=== PATIENT | female | born 1990 | race African-American/Black ===

== ENCOUNTER 2017-05-23 05:09 | Inpatient (IN) ==
[2017-05-23] MEDS ORDERED: MEPERIDINE 50 MG/1 ML VIAL IV PRN (05:24)
[2017-05-23] MEDS ORDERED: BUTORPHANOL 2 MG/ML VIAL IV PRN (05:24)
[2017-05-23] MEDS ORDERED: ONDANSETRON 4 MG/2 ML VIAL IV PRN (05:24)
[2017-05-23] MEDS: LACTATED RINGERS 1,000 ML IV SCH ×3 (05:40→08:00)
[2017-05-23 05:53] LABS: Basophils % 0.2 % (0.0-0.8); Eosinophils # 0.1 10*3/uL (0.0-0.87); Eosinophils % 0.6 % (0.00-10.9); Hematocrit 31.6 VOL% (35.7-47.0); Hemoglobin 10.5 GM/DL (12.0-16.0); Immature Granulocytes % 0.6 %; Immature Granulocytes Absolute 0.05 #; Lymphocytes # 2.8 10*3/uL (1.4-4.0); Lymphocytes % 34.2 % (21.3-54.2); Mean Corpuscular HGB Conc 33.2 GM/DL (32-36); Mean Corpuscular Hemoglobin 30 PG (27-34); Mean Platelet Volume 11.8 FL (9.6-12.0); Monocytes # 0.6 10*3/uL (0.11-0.8); Monocytes % 6.9 % (1.7-12.7); Neutrophils # 4.7 10*3/uL (1.4-7.4); Neutrophils % 57.5 % (38.7-73.9); Platelet Count 127 T/CUMM (130-400); Red Blood Count 3.55 MC/CUMM (3.8-5.5); Red Cell Distribution Width 13.3 % (9.3-17.3); White Blood Count 8.1 T/CUMM (4-12)
[2017-05-23] MEDS ORDERED: FAMOTIDINE 20 MG/2 ML VIAL IV ONE (05:56)
[2017-05-23] MEDS ORDERED: CITRIC ACID/SODIUM CITRATE 30 ML UDCUP PO ONE (05:56)
[2017-05-23] MEDS ORDERED: fentaNYL 2 MCG/ROPIV 0.2% EPID 150 ML EPIDURAL SCH (06:00)
[2017-05-23 06:29] LABS: Alanine Aminotransferase 27 U/L (13-56); Albumin 2.5 G/DL (3.4-5.0); Alkaline Phosphatase 159 U/L (45-117); Aspartate Amino Transferase 27 U/L (0-37); Bilirubin,Total < 0.39 MG/DL (0.2-1.0); Blood Urea Nitrogen 5 MG/DL (7-18); Calcium 8.6 MG/DL (8.5-10.1); Glucose 91 MG/DL (74-106); Osmolality,Calculated 273.5 MOS/KG (273-304); Potassium 3.8 MMOL/L (3.5-5.1); Sodium 139 MMOL/L (136-145); Total Protein 6.3 G/DL (6.4-8.3)
[2017-05-23] MEDS ORDERED: OXYTOCIN/LR 20 UNIT/1,000 ML BAG IV ONE ×2 (07:20→11:54)
[2017-05-23] MEDS: ePHEDrine 50 MG/ML AMP IV PRN ×2 (07:29→07:55)
[2017-05-23 09:06] LABS: Apearance,Urine CLEAR (Clear); Bilirubin,Urine Negative (Negative); Blood, Urine Negative (Negative); Glucose,Urine (UA) Negative (Negative); Ketones,Urine Negative (Negative); Mucus,Urine Occasional /LPF (Occasional); Nitrite,Urine Negative (Negative); Protein,Urine Negative; RBC,Urine <1 /HPF (0-4); Urine Color Straw (Yellow); Urine Specific Gravity 1.008 (1.001-1.035); Urine Urobilinogen < 2.0 EU/DL (0.2-1.0); WBC,Urine <1 /HPF (0-6)
[2017-05-23] MEDS ORDERED: miSOPROStol 200 MCG TABLET ONE (09:26)
[2017-05-23] MEDS ORDERED: BENZOCAINE 20%/MENTHOL 0.5% SPRAY 56 GM CAN TOP PRN (14:50)
[2017-05-23] MEDS ORDERED: oxyCODONE/ACETAMINOPHEN 5-325 MG TABLET PO PRN ×2 (14:50)
[2017-05-23] MEDS ORDERED: BISACODYL 10 MG SUPP RECTAL PRN (14:50)
[2017-05-23] MEDS ORDERED: DIPH/TET/ACEL PERT BOOSTER VACCINE 0.5 ML VIAL IM ONE (14:50)
[2017-05-23] MEDS ORDERED: WITCH HAZEL PADS 100/JAR TOP PRN (14:50)
[2017-05-23] MEDS ORDERED: HYDROCORTISONE 2.5% RECTAL CREAM 30 GM TUBE TOP PRN (14:50)
[2017-05-23] MEDS ORDERED: RHO(D) IMMUNE GLOBULIN 300 MCG SYRINGE IM ONE (14:50)
[2017-05-23] MEDS ORDERED: ACETAMINOPHEN/CODEINE 300-30 MG TABLET PO PRN (14:50)
[2017-05-23] MEDS ORDERED: LANOLIN 50% CREAM 0.3 OZ TUBE TOP PRN (14:50)
[2017-05-23] MEDS ORDERED: ACETAMINOPHEN 325 MG TABLET PO PRN (14:50)
[2017-05-23] MEDS ORDERED: MEASLES/MUMPS/RUBELLA VACCINE 0.5 ML VIAL SUBCUT ONE (14:50)
[2017-05-23] MEDS: IBUPROFEN 800 MG TABLET PO PRN (15:11)
[2017-05-23] MEDS: DOCUSATE SODIUM 100 MG CAPSULE PO SCH (21:41)
[2017-05-24] MEDS: IBUPROFEN 800 MG TABLET PO PRN (03:45)
[2017-05-24] MEDS: DOCUSATE SODIUM 100 MG CAPSULE PO SCH ×2 (08:27→21:44)
[2017-05-24 08:38] LABS: Hematocrit 29.9 VOL% (35.7-47.0); Hemoglobin 9.8 GM/DL (12.0-16.0); Mean Corpuscular HGB Conc 32.8 GM/DL (32-36); Mean Corpuscular Hemoglobin 30 PG (27-34); Mean Corpuscular Volume 90.3 FL (87-102); Red Blood Count 3.31 MC/CUMM (3.8-5.5); Red Cell Distribution Width 13.6 % (9.3-17.3); White Blood Count 8.2 T/CUMM (4-12)
[2017-05-24 08:39] LABS: Basophils % 0.2 % (0.0-0.8); Eosinophils # 0.1 10*3/uL (0.0-0.87); Immature Granulocytes % 0.5 %; Immature Granulocytes Absolute 0.04 #; Lymphocytes # 2.9 10*3/uL (1.4-4.0); Lymphocytes % 34.9 % (21.3-54.2); Mean Platelet Volume 11.9 FL (9.6-12.0); Monocytes # 0.6 10*3/uL (0.11-0.8); Monocytes % 7.2 % (1.7-12.7); Neutrophils # 4.6 10*3/uL (1.4-7.4); Neutrophils % 56.2 % (38.7-73.9); Platelet Count 113 T/CUMM (130-400)
[2017-05-24] MEDS: FERROUS SULFATE 325 MG TABLET PO SCH (10:01)
[2017-05-25 07:12] VITALS: BP 100/57
[2017-05-25] MEDS: IBUPROFEN 800 MG TABLET PO PRN (07:12)
[2017-05-25] MEDS: DOCUSATE SODIUM 100 MG CAPSULE PO SCH (08:37)
[2017-05-25] MEDS: FERROUS SULFATE 325 MG TABLET PO SCH (08:37)
== END 2017-05-25 12:10 | disposition home or self-care (01) | DRG 560 ==
LOC: N.LDOUT 05:09 → N.LD 05:13 → N.OB 13:46
PROVIDERS: ADMIT Obstetrics & Gynecology; ATTEND Obstetrics & Gynecology

== ENCOUNTER 2020-06-19 13:48 | Inpatient (IN) ==
[2020-06-19] MEDS ORDERED: ONDANSETRON 4 MG/2 ML VIAL IV PRN ×3 (14:12→16:00)
[2020-06-19] MEDS ORDERED: AMPICILLIN INJ 2,000 MG in SODIUM CHLORIDE 0.9% 100 ML IV ONE (14:15)
[2020-06-19 14:31] LABS: Basophils % 0.2 % (0.0-0.8); Eosinophils % 0.3 % (0.00-10.9); Hematocrit 34.1 VOL% (35.7-47.0); Hemoglobin 10.8 GM/DL (12.0-16.0); Immature Granulocytes % 0.8 %; Immature Granulocytes Absolute 0.09 #; Lymphocytes # 2.7 10*3/uL (1.4-4.0); Lymphocytes % 25.1 % (21.3-54.2); Mean Corpuscular HGB Conc 31.7 GM/DL (32-36); Mean Corpuscular Volume 91.2 FL (87-102); Mean Platelet Volume 11.8 FL (9.6-12.0); Monocytes % 5.6 % (1.7-12.7); Platelet Count 154 T/CUMM (130-400); Red Blood Count 3.74 MC/CUMM (3.8-5.5); Red Cell Distribution Width 14.3 % (9.3-17.3); White Blood Count 10.8 T/CUMM (4-12)
[2020-06-19] MEDS ORDERED: CITRIC ACID/SODIUM CITRATE 30 ML UDCUP PO ONE (14:33)
[2020-06-19] MEDS ORDERED: NALOXONE 0.4 MG/ML VIAL IV PRN (14:33)
[2020-06-19] MEDS ORDERED: diphenhydrAMINE 50 MG/1 ML VIAL IV PRN ×2 (14:33)
[2020-06-19] MEDS ORDERED: ePHEDrine 50 MG/ML VIAL IV PRN (14:33)
[2020-06-19] MEDS ORDERED: PROMETHAZINE 25 MG/1 ML VIAL IM PRN (14:33)
[2020-06-19] MEDS ORDERED: hydrOXYzine HCL 25 MG/1 ML VIAL IM PRN (14:33)
[2020-06-19] MEDS ORDERED: FAMOTIDINE 20 MG/2 ML VIAL IV ONE (14:33)
[2020-06-19] MEDS ORDERED: LACTATED RINGERS 1,000 ML IV ONE (14:33)
[2020-06-19] MEDS ORDERED: LIDOCAINE 2% 5 ML VIAL MISC INJ PRN (14:42)
[2020-06-19] MEDS ORDERED: OXYTOCIN/LR 30 UNIT/1,000 ML BAG IV ONE (14:42)
[2020-06-19] MEDS ORDERED: miSOPROStoL 200 MCG TABLET ONE (14:51)
[2020-06-19] MEDS ORDERED: TRANEXAMIC ACID 1,000 MG/10 ML VIAL ONE (14:51)
[2020-06-19] MEDS ORDERED: CARBOPROST TROMETHAMINE 250 MCG/ML AMP IM ONE (14:52)
[2020-06-19] MEDS ORDERED: METHYLERGONOVINE 0.2 MG/1 ML AMP ONE (14:52)
[2020-06-19 14:55] LABS: Alanine Aminotransferase 21 U/L (13-56); Albumin 2.5 G/DL (3.4-5.0); Alkaline Phosphatase 172 U/L (45-117); Aspartate Amino Transferase 14 U/L (0-37); Bilirubin,Total < 0.39 MG/DL (0.2-1.0); Blood Urea Nitrogen 5 MG/DL (7-18); Calcium 8.8 MG/DL (8.5-10.1); Carbon Dioxide 22 MMOL/L (21-32); Estimated Glom Filtration Rate 153 ML/MIN; Glucose 82 MG/DL (74-106); Osmolality,Calculated 263.2 MOS/KG (273-304); Potassium 3.6 MMOL/L (3.5-5.1); Sodium 134 MMOL/L (136-145); Total Protein 6.7 G/DL (6.4-8.2)
[2020-06-19] MEDS ORDERED: fentaNYL 2 MCG/ROPIV 0.2% EPID 100 ML EPIDURAL SCH (15:00)
[2020-06-19] MEDS ORDERED: MEPERIDINE 50 MG/1 ML VIAL IV PRN (15:00)
[2020-06-19 15:48] LABS: Cord Venous Blood HCO3 24.2 MMOL/L; Cord Venous Blood PCO2 42.2 MMHG; Cord Venous Blood PO2 31.4 MMHG
[2020-06-19] MEDS ORDERED: ACETAMINOPHEN 325 MG TABLET PO PRN (16:00)
[2020-06-19] MEDS ORDERED: LANOLIN 50% CREAM 0.3 OZ TUBE TOP PRN (16:00)
[2020-06-19] MEDS ORDERED: BISACODYL 10 MG SUPP RECTAL PRN (16:00)
[2020-06-19] MEDS ORDERED: oxyCODONE/ACETAMINOPHEN 5-325 MG TABLET PO PRN (16:00)
[2020-06-19] MEDS ORDERED: OXYTOCIN/LR 20 UNIT/1,000 ML BAG IV ONE (16:00)
[2020-06-19] MEDS ORDERED: IBUPROFEN 600 MG TABLET PO PRN (16:00)
[2020-06-19] MEDS ORDERED: WITCH HAZEL PADS 100/JAR TOP PRN (16:00)
[2020-06-19] MEDS ORDERED: HYDROCORTISONE 2.5% RECTAL CREAM 30 GM TUBE TOP PRN (16:00)
[2020-06-19] MEDS ORDERED: BENZOCAINE 20%/MENTHOL 0.5% SPRAY 56 GM CAN TOP PRN (16:00)
[2020-06-19] MEDS ORDERED: RHO(D) IMMUNE GLOBULIN 300 MCG SYRINGE IM ONE (16:00)
[2020-06-19] MEDS ORDERED: DIPH/TET/ACEL PERT BOOSTER VACCINE 0.5 ML VIAL IM ONE (16:00)
[2020-06-19] MEDS: LACTATED RINGERS 1,000 ML IV SCH ×2 (18:16)
[2020-06-19 18:39] LABS: RPR Confirm - Less than 1 yr REACTIVE (Nonreactive)
[2020-06-19] MEDS: oxyCODONE/ACETAMINOPHEN 5-325 MG TABLET PO PRN (19:27)
[2020-06-19] MEDS: IBUPROFEN 800 MG TABLET PO PRN (19:28)
[2020-06-19] MEDS: DOCUSATE SODIUM 100 MG CAPSULE PO SCH (20:52)
[2020-06-20] MEDS: IBUPROFEN 800 MG TABLET PO PRN ×2 (03:39→09:59)
[2020-06-20] MEDS: oxyCODONE/ACETAMINOPHEN 5-325 MG TABLET PO PRN (03:40)
[2020-06-20 05:27] LABS: Basophils % 0.2 % (0.0-0.8); Eosinophils # 0.1 10*3/uL (0.0-0.87); Eosinophils % 1.2 % (0.00-10.9); Hematocrit 30.4 VOL% (35.7-47.0); Immature Granulocytes % 0.6 %; Immature Granulocytes Absolute 0.06 #; Lymphocytes # 2.6 10*3/uL (1.4-4.0); Lymphocytes % 26.6 % (21.3-54.2); Mean Corpuscular HGB Conc 32.9 GM/DL (32-36); Mean Corpuscular Volume 89.4 FL (87-102); Mean Platelet Volume 12.5 FL (9.6-12.0); Monocytes % 7.3 % (1.7-12.7); Neutrophils % 64.1 % (38.7-73.9); Platelet Count 139 T/CUMM (130-400); Red Cell Distribution Width 13.9 % (9.3-17.3); White Blood Count 9.9 T/CUMM (4-12)
[2020-06-20 06:20] LABS: Eosinophils 2 % (0-10); Lymphocytes 24 % (20-55); Segmented Neutrophils 71 % (50-85); Total Cells Counted 100
[2020-06-20 06:21] LABS: Atypical Lymphocytes Few; Hypochromasia Slight; Platelet Estimate Adequate; Polychromasia Slight
[2020-06-20] MEDS: DOCUSATE SODIUM 100 MG CAPSULE PO SCH ×2 (08:50→21:01)
[2020-06-20] MEDS: MULTIVITAMIN (PRENATAL) TABLET PO SCH (08:50)
[2020-06-20] MEDS: LACTATED RINGERS 1,000 ML IV SCH ×2 (14:41)
[2020-06-21] MEDS: IBUPROFEN 800 MG TABLET PO PRN (04:24)
[2020-06-21 07:03] VITALS: BP 98/50
[2020-06-21] MEDS: DOCUSATE SODIUM 100 MG CAPSULE PO SCH (08:06)
[2020-06-21] MEDS: MULTIVITAMIN (PRENATAL) TABLET PO SCH (08:06)
[2020-06-21] MEDS: MEASLES/MUMPS/RUBELLA VACCINE 0.5 ML VIAL SUBCUT ONE ×2 (11:05→11:24)
== END 2020-06-21 12:05 | disposition home or self-care (01) | DRG 560 ==
LOC: N.LDOUT 13:48 → N.LD 13:51
PROVIDERS: ADMIT Obstetrics & Gynecology; ATTEND Obstetrics & Gynecology